=== PATIENT | male | born 1980 | race Caucasian/White ===

== ENCOUNTER → 2017-10-22 | Outpatient (CLI) | payer OTHER ==
--- NOTE | 2017-10-22 17:31 | FL ---
EXAMINATION: Cervical and Thoracic Esophagram DATE OF EXAM: 10/22/2017 CLINICAL INDICATION: 37-year-old male dysphagia, excessive coughing when eating for the last 4-5 aden hs. Some improvement with asthma inhaler. COMPARISON: None Total Fluoroscopy Time: 1 minute 22 seconds. Total images: 20. FINDINGS: The swallowing mechanism is normal and hypopharyngeal anatomy is preserved. The cervical and thoraci c portions have a normal course and caliber and normal motility. The mucosa is normal and no persiste nt filling defect is encountered. No hiatal hernia is present. No gastroesophageal reflux is identif ied. IMPRESSION: Unremarkable esophagram. Consider possible food triggers of asthma given patient's symptoms. If nydia rn for aspiration, speech pathology consultation may be useful.
== END | disposition home or self-care (01) ==
LOC: RADFLWHC 11:10
PROVIDERS: ATTEND Family Medicine
DX: R13.10 Dysphagia, unspecified (principal)
CPT/HCPCS: 74220

== ENCOUNTER → 2018-05-25 | Outpatient (CLI) | payer OTHER ==
--- NOTE | 2018-05-25 22:32 | MR ---
EXAMINATION TYPE: MR brain wo con DATE OF EXAM: 05/25/2018 COMPARISON: NONE HISTORY: Dizziness, fainting TECHNIQUE: Multiplanar, multisequence imaging of the brain and brainstem is performed without IV cont rast. FINDINGS: Diffusion weighted images demonstrate no evidence of a recent infarct or other diffusion abnormality. There is no worrisome extra-axial fluid collection. The ventricular system and cisternal spaces are normal in size and appearance. The brain volume is age appropriate. There is occasional scattered ti ny T2 focus throughout the white matter bilaterally. Less than 5 small lesions are seen measuring 3 m m or smaller in size. Lesions are nonspecific in appearance and distribution. Midline structures demonstrate normal morphology. The craniocervical junction appears within normal limits. Normal vascular flow voids are present. There is 1.0 cm mucous retention cyst or polyp right maxillary sinus axial image 5 otherwise paranasal sinuses are clear. Globes are intact bilaterally. N o suspicious fluid signal in mastoid air cells is present bilaterally. IMPRESSION: Minimal nonspecific white matter changes otherwise fairly unremarkable study without susp icious findings seen to account for patient's symptoms of dizziness and/or fainting.
== END | disposition home or self-care (01) ==
LOC: RADMRIMAIN 16:42
PROVIDERS: ATTEND Psychiatry & Neurology Neurology
DX: R90.89 Other abnormal findings on diagnostic imaging of central nervous system (principal); R55 Syncope and collapse
CPT/HCPCS: 70551

== ENCOUNTER → 2019-01-12 | Outpatient (CLI) | payer OTHER ==
--- NOTE | 2019-01-12 16:44 | FL ---
MODIFIED SWALLOW / DEGLUTITION STUDY DATE OF EXAM: 01/12/2019 CLINICAL HISTORY: 38-year-old male trouble swallowing solid consistencies, Dysphagia. TECHNIQUE: Deglutition study is performed utilizing thin liquid barium, honey and nectar thick liqui d barium, barium thick applesauce, and barium coated cracker. Total fluoroscopy time: 1 minute 9 seconds. Total images: None. Real-time fluoroscopy support was provided to speech pathology. COMPARISON: None. FINDINGS: The oral and pharyngeal phases show satisfactory initiation and propagation with all modalities teste d. Normal mastication is seen with solid modalities tested. The initial swallow of thin barium resu lted in a large amount of romero aspiration and subsequent prolonged bouts of coughing. Once the patie nt was settled, the exam was recommenced. There is no evidence of penetration or aspiration with any modality tested. No significant pharyngeal residue was appreciated. IMPRESSION: Initial episode of romero aspiration with thin liquids and subsequent prolonged bout of coughing. This is felt to have been an isolated, incidental event. After the patient was settled, the exam was mari mmenced and no subsequent penetration or aspiration was encountered. Please refer to speech therapist notes for further details if necessary.
== END ==
LOC: RADFLMAIN 11:18
PROVIDERS: ATTEND Family Medicine
DX: R05 Cough (principal)
CPT/HCPCS: 74230

== ENCOUNTER → 2022-01-18 | Outpatient (CLI) | payer OTHER ==
[2022-01-18 18:44] LABS: Basophils # (A) 0.13 X 10*3/uL (0.00-0.10); Basophils % (A) 1.6 %; Eosinophils # (A) 0.22 X 10*3/uL (0.04-0.35); Eosinophils % (A) 2.7 %; HCT 49.7 % (39.6-50.0); HGB 16.4 g/dL (13.0-17.0); Immature Grans, Automated 0.2 %; Lymphocytes # (A) 2.26 X 10*3/uL (0.90-5.00); Mean Platelet Volume 11.8 fL (9.5-12.2); Monocytes # (A) 0.53 X 10*3/uL (0.20-1.00); Monocytes % (A) 6.6 %; NRBC Per 100 WBC 0 /100 WBCS (0.0-0.0); Neutrophils % (A) 60.9 %; Platelet Count 308 X 10*3/uL (140-440); RBC 5.85 X 10*6/uL (4.40-5.60); WBC 8.06 X 10*3/uL (4.50-10.00)
[2022-01-18 19:42] LABS: ALT 62 U/L (10-49); AST 38 U/L (14-35); Albumin 4.7 g/dL (3.8-4.9); Albumin/Globulin Ratio 1.41 (1.60-3.17); Alkaline Phosphatase 72 U/L (41-126); BUN/Creat Ratio 12.29 Ratio (12.00-20.00); Blood Urea Nitrogen 10.9 mg/dL (9.0-27.0); Calcium 9.7 mg/dL (8.7-10.3); Carbon Dioxide 24.1 mmol/L (20.0-27.5); Chloride 105 mmol/L (96-109); Chol/HDL Ratio 4.99 Ratio; Globulin 3.3 g/dL (1.6-3.3); Glucose 96 mg/dL (70-110); LDL Cholesterol,Calculated 99.3 mg/dL (0.0-131.0); Non-African American GFR(CKD) 107.9 (60.0-200.0); Sodium 141 mmol/L (135-145)
== END | disposition home or self-care (01) ==
LOC: LABWHC1 10:30
PROVIDERS: ATTEND Family Medicine
DX: Z00.00 Encounter for general adult medical examination without abnormal findings (principal); E55.9 Vitamin D deficiency, unspecified
CPT/HCPCS: 36415; 80053; 80061; 82306; 85025

== ENCOUNTER 2023-07-30 17:07 | Emergency (ER) | payer OTHER ==
--- NOTE | 2023-07-30 18:19 | ED ---
Lower Extremity Injury HPI <KhoiLianet - Last Filed: 07/30/23 18:17> <Param Frias - Last Filed: 08/01/23 00:05> - General Stated Complaint: fall L hip/knee Time Seen by Provider: 07/30/23 18:18 - History of Present Illness Initial Comments: Quick [id number] male presenting with left hip and knee pain status post fall 1 hour prior to arrival. States he slipped and fell on water on the floor and landed onto linoleum directly onto his left hip and left knee. He has been able to weight-bear but admits pain. Denies numbness or tingling. (Lianet Westfall) 43-year-old male presenting with chief complaint of left hip and knee pain after a fall today. Patient slipped on a wet floor causing him to fall onto his left hip and left knee. He is able to bear weight, however pain is worse with bearing weight. No numbness tingling or weakness. No discoloration or swelling. (Param Frias) - Related Data Allergies Allergy/AdvReac Type Severity Reaction Status Date / Time No Known Allergies Allergy Verified 07/30/23 19:15 Review of Systems ROS Other: All systems not noted in ROS Statement are negative. <Lianet Westfall - Last Filed: 07/30/23 18:17> ROS Other: All systems not noted in ROS Statement are negative. <Param Frias - Last Filed: 08/01/23 00:05> ROS Statement: Those systems with pertinent positive or pertinent negative responses have been documented in the HPI. General Exam <Lianet Westfall - Last Filed: 07/30/23 18:17> Limitations: no limitations General appearance: alert, in no apparent distress Head exam: Present: atraumatic, normocephalic Eye exam: Present: normal appearance, EOMI Neck exam: Present: normal inspection. Absent: meningismus Respiratory exam: Absent: respiratory distress Cardiovascular Exam: Present: regular rate Left Hip exam: Present: normal inspection, full ROM Knee exam: Present: normal inspection, full ROM Neurological exam: Present: alert, oriented X3 Psychiatric exam: Present: normal affect, normal mood Skin exam: Present: normal color <Param Frias - Last Filed: 08/01/23 00:05> - General Exam Comments Initial Comments: Visual Physical Exam General: Well-appearing, nontoxic, no acute distress. Head: Normocephalic, atraumatic Eyes: PERRLA, EOMI ENT: Airway patent Chest: Nonlabored breathing Skin: No visual rash, normal skin tone Neuro: Alert and oriented 3 Musculoskeletal: No gross abnormalities (Liaent Westfall) Course Vital Signs 07/30/23 07/30/23 19:09 20:40 Temperature 99.7 F H 98.1 F Pulse Rate 73 84 Respiratory 18 18 Rate Blood Pressure 132/88 145/97 O2 Sat by Pulse 97 95 Oximetry Medical Decision Making <Lianet Westfall - Last Filed: 07/30/23 18:17> <Param Frias - Last Filed: 08/01/23 00:05> - Medical Decision Making I completed the quick note portion of this chart signed Lianet Westfall PA-C (Lianet Westfall) Was pt. sent in by a medical professional or institution (, PA, FIELD OPERATIONS TECHNICIAN, urgent care, hospital, or longterm...) When possible be specific @ -No Did you speak to anyone other than the patient for history (EMS, parent, family, police, friend...)? What history was obtained from this source @ -No Did you review nursing and triage notes (agree or disagree)? Why? @ -I reviewed and agree with nursing and triage notes Were old charts reviewed (outside hosp., previous admission, EMS record, old EKG, old radiological studies, urgent care reports/EKG's, longterm records)? Report findings @ -No old charts were reviewed Differential Diagnosis (chest pain, altered mental status, abdominal pain women, abdominal pain men, vaginal bleeding, weakness, fever, dyspnea, syncope, headache, dizziness, GI bleed, back pain, seizure, CVA, palpatations, mental health, musculoskeletal)? @ -Differential Musculoskeletal Muscular strain, contusion, ligament sprain, fracture, arthritis, septic arthritis, bursitis, cellulitis, muscle spasm, nerve compression, DVT, arterial occlusion, herpes zoster, electrolyte abnormality, tumor.... This is not meant to be in all inclusive list EKG interpreted by me (3pts min.). @ -As above X-rays interpreted by me (1pt min.). @ -Knee x-ray shows no acute osseous pathology. Mild tricompartmental osteoarthritic changes Hip x-ray shows no acute process CT interpreted by me (1pt min.). @ -None done U/S interpreted by me (1pt. min.). @ -None done What testing was considered but not performed or refused? (CT, X-rays, U/S, labs)? Why? @ -None What meds were considered but not given or refused? Why? @ -None Did you discuss the management of the patient with other professionals (professionals i.e. , PA, FIELD OPERATIONS TECHNICIAN, lab, RT, psych nurse, home health care social worker, building repair maintenance supervisor, teacher, residential care officer, high risk case manager)? Give summary @ -No Was smoking cessation discussed for >3mins.? @ -No Was critical care preformed (if so, how long)? @ -No Were there social determinants of health that impacted care today? How? (H omelessness, low income, unemployed, alcoholism, drug addiction, transportation, low edu. Level, literacy, decrease access to med. care, fpc, rehab)? @ -No Was there de-escalation of care discussed even if they declined (Discuss DNR or withdrawal of care, Hospice)? DNR status @ -No What co-morbidities impacted this encounter? (DM, HTN, Smoking, COPD, CAD, Cancer, CVA, ARF, Chemo, Hep., AIDS, mental health diagnosis, sleep apnea, morbid obesity)? @ -None Was patient admitted / discharged? Hospital course, mention meds given and route, prescriptions, significant lab abnormalities, going to OR and other pertinent info. @ -43-year-old male presenting with chief complaint of knee and hip injury. X- rays are negative. Patient still has range of motion and is able to bear weight. patient educated and discharged home. Follow-up with PCP. Report back to ER with any new or worsening symptoms. Discussed return parameters and answered all questions. Patient conveyed verbal understanding and agreed to the plan. I discussed this case in detail with my attending Dr. Bassett Undiagnosed new problem with uncertain prognosis? @ -No Drug Therapy requiring intensive monitoring for toxicity (Heparin, Nitro, Insulin, Cardizem)? @ -No Were any procedures done? @ -No Diagnosis/symptom? @ -Hip pain, knee pain Acute, or Chronic, or Acute on Chronic? @ -Acute Uncomplicated (without systemic symptoms) or Complicated (systemic symptoms)? @ -Uncomplicated Side effects of treatment? @ -No Exacerbation, Progression, or Severe Exacerbation? @ -No Poses a threat to life or bodily function? How? (Chest pain, [place], [place], pneumonia, PE, COPD, DKA, ARF, appy, cholecystitis, CVA, Diverticulitis, Homicidal, Suicidal, threat to staff... and all critical care pts) @ -No (Param Frias) Disposition <Lianet Westfall - Last Filed: 07/30/23 18:17> Is patient prescribed a controlled substance at d/c from ED?: No Time of Disposition: 20:15 <Param Frias - Last Filed: 08/01/23 00:05> Clinical Impression: Knee strain, Hip strain Disposition: HOME SELF-CARE Condition: Good Instructions (If sedation given, give patient instructions): Knee Pain (ED), Hip Pain (ED) Additional Instructions: Follow-up with PCP. Report back to ER with any new or worsening symptoms. Take Motrin and Tylenol as needed for pain control. Rest, ice, elevate. Referrals: Fer Gray MD [Primary Care Provider] - 1-2 days
[2023-07-30 19:15] VITALS: RESP 18
--- NOTE | 2023-07-30 19:30 | XR ---
EXAMINATION TYPE: XR knee complete LT DATE OF EXAM: 07/30/2023 7:26 PM CLINICAL INDICATION:Male, 43 years old with history of Left knee pain; [facility] COMPARISON: None. TECHNIQUE: The Left knee(s) was examined in Frontal, lateral and oblique projections. FINDINGS: No evidence of any acute osseous pathology, soft tissue swelling, or joint effusion is no zach. IMPRESSION: 1. No acute osseous pathology. 2. Mild tricompartmental osteoarthritic changes.
--- NOTE | 2023-07-30 19:31 | XR ---
EXAMINATION TYPE: XR Hip Complete LT DATE OF EXAM: 07/30/2023 7:26 PM CLINICAL INDICATION:Male, 43 years old with history of Left hip pain; [facility] COMPARISON: None. TECHNIQUE: The left hip was examined in the frontal and lateral projections and a AP pelvis. FINDINGS: No evidence for acute process, joint dislocation or significant soft tissue swelling. IMPRESSION: No acute process.
[2023-07-30] MEDS: ACET/COD 300 MG/30 MG STARTER PACK 6 TAB BTL PO STA (20:30)
[2023-07-30 20:42] VITALS: BP 145/97; PULSE 84; TEMP 98.1
== END 2023-07-30 20:41 | disposition home or self-care (01) ==
LOC: EC 17:07
DX: S76.012A Strain of muscle, fascia and tendon of left hip, initial encounter (principal); S86.912A Strain of unspecified muscle(s) and tendon(s) at lower leg level, left leg, initial encounter; W01.0XXA Fall on same level from slipping, tripping and stumbling without subsequent striking against object, initial encounter
CPT/HCPCS: 73502; 99283

== ENCOUNTER 2023-12-08 18:02 | Emergency (ER) | payer OTHER ==
[2023-12-08 18:06] VITALS: BP 144/95; PULSE 99; RESP 16; TEMP 100.1
--- NOTE | 2023-12-08 18:26 | ED ---
General Adult HPI - General Source: patient, RN notes reviewed Mode of arrival: ambulatory Limitations: no limitations <Mojgan Helms - Last Filed: 12/08/23 18:25> - General Source: patient, RN notes reviewed Mode of arrival: ambulatory Limitations: no limitations <Scott Mensah - Last Filed: 12/08/23 19:32> - General Chief complaint: Chest Pain Stated complaint: L sided rib pain Time Seen by Provider: 12/08/23 18:18 - History of Present Illness Initial comments: Quick [id number] male presents emergency department chief complaint of left-sided rib pain. 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 States that pain exacerbated with movement and coughing and deep breaths. He denies chest pain, shortness of breath, difficulty breathing. (Mojgan Helms) 43-year-old male presents emergency department chief complaint of left-sided rib pain. Patient states he leaned over a hard edge of a couch and states he felt something pop, crack in his left side of his rib. He states only hurts when he moves. Patient denies any significant shortness of breath no palpitations no other chest pain otherwise. Patient states that it is painful to press on the area. (Scott Mensah) - Related Data Allergies Allergy/AdvReac Type Severity Reaction Status Date / Time No Known Allergies Allergy Verified 12/08/23 18:06 Review of Systems ROS Other: All systems not noted in ROS Statement are negative. <Mojgan Helms - Last Filed: 12/08/23 18:25> ROS Other: All systems not noted in ROS Statement are negative. <Scott Mensah - Last Filed: 12/08/23 19:32> ROS Statement: Those systems with pertinent positive or pertinent negative responses have been documented in the HPI. Past Medical History Past Medical History: Asthma, Hyperlipidemia, Hypertension Additional Past Medical History / Comment(s): myeopathy History of Any Multi-Drug Resistant Organisms: None Reported Past Surgical History: Joint Replacement, Orthopedic Surgery Additional Past Surgical History / Comment(s): patella, Smoking Status: Never smoker Past Alcohol Use History: None Reported Past Drug Use History: None Reported <Mojgan Helms - Last Filed: 12/08/23 18:25> General Exam Limitations: no limitations <Mojgan Helms - Last Filed: 12/08/23 18:25> General appearance: alert, in no apparent distress Head exam: Present: atraumatic, normocephalic, normal inspection Eye exam: Present: normal appearance, PERRL, EOMI. Absent: scleral icterus, conjunctival injection, periorbital swelling ENT exam: Present: normal exam, normal oropharynx, mucous membranes moist Neck exam: Present: normal inspection, full ROM. Absent: tenderness, meningismus, lymphadenopathy Respiratory exam: Present: normal lung sounds bilaterally, chest wall tenderness. Absent: respiratory distress, wheezes, rales, rhonchi, stridor Cardiovascular Exam: Present: regular rate, normal rhythm, normal heart sounds. Absent: systolic murmur, diastolic murmur, rubs, gallop, clicks GI/Abdominal exam: Present: soft, normal bowel sounds. Absent: distended, tend erness, guarding, rebound, rigid <Scott Mensah - Last Filed: 12/08/23 19:32> - General Exam Comments Initial Comments: Visual Physical Exam Vital signs reviewed General: Well-appearing, nontoxic, no acute distress. Head: Normocephalic, atraumatic Eyes: PERRLA, EOMI ENT: Airway patent Chest: Nonlabored breathing Skin: No visual rash, normal skin tone Neuro: Alert and oriented 3 Musculoskeletal: No gross abnormalities (Mojgan Hlems) Course Vital Signs 12/08/23 18:05 Temperature 100.1 F H Pulse Rate 99 Respiratory 16 Rate Blood Pressure 144/95 O2 Sat by Pulse 96 Oximetry Medical Decision Making <Mojgan Helms - Last Filed: 12/08/23 18:25> <Scott Mensah - Last Filed: 12/08/23 19:32> - Medical Decision Making I completed the quick note portion of this chart signed Mojgan Helms PA-C (Mojgan Helms) Was pt. sent in by a medical professional or institution (DANELLE Carver, HOUSE CLEANER SUPERVISOR, urgent care, hospital, or retirement...) When possible be specific @ -No Did you speak to anyone other than the patient for history (EMS, parent, family, police, friend...)? What history was obtained from this source @ -No Did you review nursing and triage notes (agree or disagree)? Why? @ -I reviewed and agree with nursing and triage notes Were old charts reviewed (outside hosp., previous admission, EMS record, old EKG, old radiological studies, urgent care reports/EKG's, retirement records)? Report findings @ -No old charts were reviewed Differential Diagnosis (chest pain, altered mental status, abdominal pain women, abdominal pain men, vaginal bleeding, weakness, fever, dyspnea, syncope, headache, dizziness, GI bleed, back pain, seizure, CVA, palpatations, mental health, musculoskeletal)? @ -Differential Chest Pain: Stable Angina, Unstable Angina, STEMI, NSTEMI Aortic Dissection, Pneumothorax, Musculoskeletal, Esophageal Spasm GERD, Cholecystitis, Pancreatitis, Zoster, this is not meant to be an all-inclusive list. EKG interpreted by me (3pts min.). @ -None X-rays interpreted by me (1pt min.). @ -Chest x-ray rib series shows no acute fracture, pneumothorax or acute abnormality. CT interpreted by me (1pt min.). @ -None done U/S interpreted by me (1pt. min.). @ -None done What testing was considered but not performed or refused? (CT, X-rays, U/S, labs)? Why? @ -None What meds were considered but not given or refused? Why? @ -None Did you discuss the management of the patient with other professionals (professionals i.e. , PA, HOUSE CLEANER SUPERVISOR, lab, RT, psych nurse, social welfare administrator, office administration instructor, teacher, corporate development officer, caser up)? Give summary @ -No Was smoking cessation discussed for >3mins.? @ -No Was critical care preformed (if so, how long)? @ -No Were there social determinants of health that impacted care today? How? (Homelessness, low income, unemployed, alcoholism, drug addiction, transportation, low edu. Level, literacy, decrease access to med. care, longterm, rehab)? @ -No Was there de-escalation of care discussed even if they declined (Discuss DNR or withdrawal of care, Hospice)? DNR status @ -No What co-morbidities impacted this encounter? (DM, HTN, Smoking, COPD, CAD, Cancer, CVA, ARF, Chemo, Hep., AIDS, mental health diagnosis, sleep apnea, morbid obesity)? @ -None Was patient admitted / discharged? Hospital course, mention meds given and route, prescriptions, significant lab abnormalities, going to OR and other pert inent info. @ -Discharge patient presented for left sided rib injury no acute fracture noted normal x-rays no pneumothorax patient discharged in stable condition return parameters carmelo. Undiagnosed new problem with uncertain prognosis? @ -No Drug Therapy requiring intensive monitoring for toxicity (Heparin, Nitro, Insulin, Cardizem)? @ -No Were any procedures done? @ -No Diagnosis/symptom? @ -Chest wall pain Acute, or Chronic, or Acute on Chronic? @ -Acute Uncomplicated (without systemic symptoms) or Complicated (systemic symptoms)? @ -Uncomplicated Side effects of treatment? @ -No Exacerbation, Progression, or Severe Exacerbation? @ -No Poses a threat to life or bodily function? How? (Chest pain, [place], [place], pneumonia, PE, COPD, DKA, ARF, appy, cholecystitis, CVA, Diverticulitis, Homicidal, Suicidal, threat to staff... and all critical care pts) @ -No (Scott Mensah) Disposition <Mojgan Helms - Last Filed: 12/08/23 18:25> Is patient prescribed a controlled substance at d/c from ED?: No Time of Disposition: 19:30 <Scott Mensah - Last Filed: 12/08/23 19:32> Clinical Impression: Strain of chest wall, Rib pain on left side Disposition: HOME SELF-CARE Condition: Stable Instructions (If sedation given, give patient instructions): Chest Wall Pain (ED) Additional Instructions: Please return to the Emergency Department if symptoms worsen or any other concerns. Referrals: Fer Gray MD [Primary Care Provider] - 1-2 days
--- NOTE | 2023-12-08 18:45 | XR ---
EXAMINATION TYPE: XR ribs LT w pa chest xray, 5 views DATE OF EXAM: 12/08/2023 Comparison: None Clinical History: 43-year-old male left-sided pain after bending over Findings: Heart normal size. Aorta and pulmonary vasculature within normal limits. No consolidation, pneumothor ax, or pleural effusion. Some asymmetric elevation right hemidiaphragm may be due to diaphragmatic ev entration. Nondisplaced left rib fracture seen. Impression: No acute cardiopulmonary process. No displaced left rib fracture seen. [facility], , 12/08/2023 6:43 PM
== END 2023-12-08 19:43 | disposition home or self-care (01) ==
LOC: EC 18:02
CPT/HCPCS: 99284